=== PATIENT | male | born 1965 | race Caucasian/White ===

== ENCOUNTER 2021-07-11 15:26 | Emergency (ER) | payer MEDICARE ==
[2021-07-11 15:51] VITALS: BP 130/68; PULSE 97
[2021-07-11 16:24] LABS: CORONAVIRUS COVID-19 NAA NEGATIVE (NEGATIVE)
[2021-07-11] MEDS ORDERED: Albuterol/Ipratropium 3.0-0.5 MG/3 ML Neb Soln NEB ONE (16:37)
[2021-07-11 16:50] LABS: CHLORIDE,CL 96 mEq/L (98-106); SODIUM,NA 137 mEq/L (136-145)
[2021-07-11] MEDS ORDERED: Albuterol 8 GM Inhaler INH PRN (17:00)
== END 2021-07-11 17:20 | disposition home or self-care (01) ==
LOC: CC.ED 15:26
DX: J10.1 Influenza due to other identified influenza virus with other respiratory manifestations (principal); R06.2 Wheezing; E11.9 Type 2 diabetes mellitus without complications; Z72.0 Tobacco use; Z79.899 Other long term (current) drug therapy; Z20.822 Contact with and (suspected) exposure to COVID-19
CPT/HCPCS: 0240U; 36415; 80053; 85025; 85379; 86140; 94640; 99285; A9270; J7620-GY